=== PATIENT | female | born 1935 | race Caucasian/White ===

== ENCOUNTER 2016-12-27 05:48 | Emergency (ER) | payer OTHER ==
[~2016-12-27] VITALS: Ht 165.1 cm; Wt 72.6 kg
[2016-12-27] MEDS ORDERED: ASPIRIN 325 MG TABLET ONE (05:57)
[2016-12-27] MEDS ORDERED: ASPIRIN 325 MG TABLET PO ONE (06:00)
--- NOTE | 2016-12-27 06:03 | NUR ---
PT A/OX4 BREATHING EFFORTLESSLY ON ROOM AIR, PT STATES SHE WOKE UP WITH ALOT OF PRESSURE IN HER CHEST, IV PLACED, PT ON MONITOR, IN MD [place] AT BEDSIDE, EKG DONE, LABS DRAWN, WILL CONTINUE TO MONITOR.
[2016-12-27 06:14] LABS: BASOPHILS # (AUTO) 0.1 /CMM (0.0-0.2); BASOPHILS % (AUTO) 0.7 % (0.0-2.0); EOSINOPHILS # (AUTO) 0.3 /CMM (0.0-0.7); EOSINOPHILS % (AUTO) 4.1 % (0.0-6.0); HEMATOCRIT 42 % (33-45); HEMOGLOBIN 13.7 g/dL (11.5-14.8); LYMPHOCYTES # (AUTO) 2.6 /CMM (0.8-4.8); LYMPHOCYTES % (AUTO) 36.6 % (20.0-44.0); MEAN CORPUSCULAR HEMOGLOBIN 28 PG (26.0-33.0); MEAN CORPUSCULAR HGB CONC 33 g/dl (31.0-36.0); MEAN CORPUSCULAR VOLUME 84 fL (82-100); MONOCYTES # (AUTO) 0.5 /CMM (0.1-1.30); MONOCYTES % (AUTO) 6.3 % (2.0-12.0); NEUTROPHILS # (AUTO) 3.7 /CMM (1.8-8.9); NEUTROPHILS % (AUTO) 52.3 % (43.0-81.0); PLATELET COUNT (AUTO) 152 /CMM (150-450); RDW COEFFICIENT OF VARIATION 13.8 (11.5-15.0); RED BLOOD CELL COUNT(AUTO) 4.92 MIL/uL (4.0-5.2); WHITE BLOOD COUNT (AUTO) 7.2 K/uL (4.3-11.0)
[2016-12-27 06:24] LABS: CALCIUM, SERUM 9.3 mg/dL (8.5-10.1); CARBON DIOXIDE 31 mmol/L (21-32); CHLORIDE 106 mmol/L (98-107); CREATININE 0.9 mg/dL (0.6-1.3); GLUCOSE 99 mg/dL (74-106); POTASSIUM 4.2 mmol/L (3.5-5.1); SODIUM SERUM 140 mmol/L (136-145); UREA NITROGEN, BLOOD 28 mg/dL (7-18)
[2016-12-27 06:28] LABS: INR 0.97 (0.87-1.13); PROTHROMBIN TIME 10.4 SECS (9.5-12.7)
[2016-12-27] MEDS ORDERED: NITROGLYCERIN PACKET 1 GM PACKET TD ONE (06:30)
[2016-12-27 06:32] LABS: TROPONIN I < 0.017 ng/mL (0.00-0.056)
[2016-12-27 06:41] LABS: ALBUMIN 3.6 g/dL (3.4-5.0); BILIRUBIN,DIRECT 0.1 mg/dL (0.0-0.2); BILIRUBIN,TOTAL 0.3 mg/dL (0.2-1.0); TOTAL PROTEIN, SERUM 7.5 g/dL (6.4-8.2)
[2016-12-27] MEDS ORDERED: NITROGLYCERIN PACKET 1 GM PACKET ONE (06:51)
[2016-12-27 07:37] VITALS: BP 140/74
--- NOTE | 2016-12-27 07:39 | NUR ---
[facility], , DR. ROSALES, TRANSPORT ETA 8:35, HUGO:
--- NOTE | 2016-12-27 07:46 | NUR ---
REPORT GIVEN TO MOODY HOLM CHARGE NURSE.
--- NOTE | 2016-12-27 08:12 | NUR ---
PT WAS PICKED UP BY [facility] TO BE TRANSPORTED TO [place]. VSS
== END 2016-12-27 08:13 | disposition short-term general hospital (02) ==
LOC: ER 05:49
DX: R07.89 Other chest pain (principal); I10 Essential (primary) hypertension; Z90.10 Acquired absence of unspecified breast and nipple; Z88.8 Allergy status to other drugs, medicaments and biological substances
CPT/HCPCS: 36415; 71010; 80048; 80076; 84484; 85025; 85730; 93005; 99285; A4606; Z7610

== ENCOUNTER 2017-10-16 04:32 | Emergency (ER) | payer OTHER ==
[~2017-10-16] VITALS: Ht 167.6 cm; Wt 74.8 kg
--- NOTE | 2017-10-16 04:47 | NUR ---
PT BIBRA FROM HOME PT STATES "WOKE UP AND CANT BREATHE; FEEL NUMB" LUNGS CLEAR; DENIES CP. PT AOX3 RR EVEN AND UNLABORED. NO SOB NOTED. NAD NOTED. NO NVD AT THIS TIME. PT GOWNED AND PLACED ON MONITOR. DR BECK AT BEDSIDE FOR EVAL. PT WITH RCW PACEMAKER.
[2017-10-16] MEDS ORDERED: LORAZEPAM INJ 2 MG/ML VIAL IV ONE (05:00)
[2017-10-16] MEDS ORDERED: LORAZEPAM INJ 2 MG/ML VIAL ONE (05:04)
--- NOTE | 2017-10-16 05:08 | NUR ---
RADIOLOGY AT BEDSIDE FOR CXR
[2017-10-16 05:15] LABS: BASOPHILS # (AUTO) 0.1 /CMM (0.0-0.2); BASOPHILS % (AUTO) 0.9 % (0.0-2.0); EOSINOPHILS # (AUTO) 0.2 /CMM (0.0-0.7); EOSINOPHILS % (AUTO) 2.9 % (0.0-6.0); HEMATOCRIT 39 % (33-45); HEMOGLOBIN 12.8 g/dL (11.5-14.8); LYMPHOCYTES # (AUTO) 2.4 /CMM (0.8-4.8); LYMPHOCYTES % (AUTO) 28.9 % (20.0-44.0); MEAN CORPUSCULAR HEMOGLOBIN 28 PG (26.0-33.0); MEAN CORPUSCULAR HGB CONC 33 g/dl (31.0-36.0); MEAN CORPUSCULAR VOLUME 86 fL (82-100); MONOCYTES # (AUTO) 0.5 /CMM (0.1-1.30); NEUTROPHILS # (AUTO) 5.1 /CMM (1.8-8.9); NEUTROPHILS % (AUTO) 61.3 % (43.0-81.0); PLATELET COUNT (AUTO) 178 /CMM (150-450); RDW COEFFICIENT OF VARIATION 14.6 (11.5-15.0); RED BLOOD CELL COUNT(AUTO) 4.51 MIL/uL (4.0-5.2); WHITE BLOOD COUNT (AUTO) 8.3 K/uL (4.3-11.0)
[2017-10-16 05:20] LABS: CALCIUM, SERUM 9.8 mg/dL (8.5-10.1); CARBON DIOXIDE 28 mmol/L (21-32); CHLORIDE 106 mmol/L (98-107); CREATININE 0.9 mg/dL (0.6-1.3); GLUCOSE 108 mg/dL (74-106); POTASSIUM 3.6 mmol/L (3.5-5.1); SODIUM SERUM 141 mmol/L (136-145); UREA NITROGEN, BLOOD 20 mg/dL (7-18)
--- NOTE | 2017-10-16 05:27 | NUR ---
PT APPEARS RELAXED AND COMFORTABLE. SLEEPING. EASILY AROUSED.
[2017-10-16 05:28] LABS: TROPONIN I < 0.017 ng/mL (0.00-0.056)
--- NOTE | 2017-10-16 05:35 | NUR ---
INITIAL [facility] CALL
--- NOTE | 2017-10-16 05:42 | NUR ---
DR. NEVILLE (JEMISON ) SPEAKING TO DR. BECK REGARDING POC.
--- NOTE | 2017-10-16 07:27 | NUR ---
REPORT GIVEN TO THIAGO VILLALBA FOR MAURI
--- NOTE | 2017-10-16 09:04 | NUR ---
PT. GAVE FAMILY PHONE NUMBER FOR RIDE BACK HOME. LUCINDA (BROTHER) [phone] Addendum: 10/16/17 at 0909 by JOSS CORRECTION OF PHONE NUMBER LUCINDA [phone]
--- NOTE | 2017-10-16 09:18 | NUR ---
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
[2017-10-16 09:45] VITALS: BP 122/76
--- NOTE | 2017-10-16 09:45 | NUR ---
IV removed. Catheter intact and site benign. Pressure and 4x4 applied to site. No bleeding noted. Patient discharged to home in stable condition. Written and verbal after care instructions given. Patient verbalizes understanding of instruction.
== END 2017-10-16 09:45 | disposition home or self-care (01) ==
LOC: ER 04:32
DX: F41.9 Anxiety disorder, unspecified (principal); I10 Essential (primary) hypertension; I48.91 Unspecified atrial fibrillation; Z95.0 Presence of cardiac pacemaker; Z85.3 Personal history of malignant neoplasm of breast; Z88.8 Allergy status to other drugs, medicaments and biological substances
CPT/HCPCS: 36415; 71045-TC; 80048-TC; 84484-TC; 85025-TC; 85730-TC; A4606; J2060; Z7610

== ENCOUNTER 2017-10-28 03:42 | Emergency (ER) | payer OTHER ==
[~2017-10-28] VITALS: Ht 165.1 cm; Wt 73.9 kg
--- NOTE | 2017-10-28 03:45 | NUR ---
PT BIB [facility] WITH A C/O SOB, COUGH WITH CONGESTION AND RHONCHI NOTED BILATERALLY. 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 PT WENT TO BED #2 AND WAS TRIAGED. PT IS ON THE MONITOR AND CONTINUOUS PULSE OX. WILL CONTINUE TO MONITOR THE PT.
--- NOTE | 2017-10-28 04:30 | NUR ---
CXR DONE AT THE BEDSIDE.
[2017-10-28 04:41] LABS: BASOPHILS % (AUTO) 0.3 % (0.0-2.0); EOSINOPHILS # (AUTO) 0.2 /CMM (0.0-0.7); HEMATOCRIT 36 % (33-45); HEMOGLOBIN 11.9 g/dL (11.5-14.8); LYMPHOCYTES # (AUTO) 1.5 /CMM (0.8-4.8); LYMPHOCYTES % (AUTO) 16.4 % (20.0-44.0); MEAN CORPUSCULAR HEMOGLOBIN 28 PG (26.0-33.0); MEAN CORPUSCULAR HGB CONC 34 g/dl (31.0-36.0); MEAN CORPUSCULAR VOLUME 85 fL (82-100); MONOCYTES # (AUTO) 0.6 /CMM (0.1-1.30); MONOCYTES % (AUTO) 6.2 % (2.0-12.0); NEUTROPHILS # (AUTO) 6.8 /CMM (1.8-8.9); NEUTROPHILS % (AUTO) 75.1 % (43.0-81.0); PLATELET COUNT (AUTO) 234 /CMM (150-450); RED BLOOD CELL COUNT(AUTO) 4.19 MIL/uL (4.0-5.2); WHITE BLOOD COUNT (AUTO) 9.1 K/uL (4.3-11.0)
[2017-10-28 04:49] LABS: CALCIUM, SERUM 9.4 mg/dL (8.5-10.1); CARBON DIOXIDE 30 mmol/L (21-32); CHLORIDE 98 mmol/L (98-107); CREATININE 0.9 mg/dL (0.6-1.3); GLUCOSE 105 mg/dL (74-106); POTASSIUM 3.8 mmol/L (3.5-5.1); SODIUM SERUM 136 mmol/L (136-145); UREA NITROGEN, BLOOD 20 mg/dL (7-18)
[2017-10-28] MEDS ORDERED: methylPREDNISolone SOD SUCC 125 MG/2ML VIAL ONE (04:50)
[2017-10-28 04:57] LABS: TROPONIN I < 0.017 ng/mL (0.00-0.056)
[2017-10-28] MEDS ORDERED: methylPREDNISolone SOD SUCC 125 MG/2ML VIAL IV ONE (05:00)
--- NOTE | 2017-10-28 05:00 | NUR ---
PT'S O2 NC WAS TURNED OFF AND PT DESATURATED TO 87%. PT PLACED BACK ON 2L.
[2017-10-28 05:02] LABS: B-TYPE NATRIURETIC PEPTIDE 5111 PG/ML (0-125)
--- NOTE | 2017-10-28 05:06 | NUR ---
CALLED MAURI BOATENG
[2017-10-28] MEDS ORDERED: OSELTAMIVIR PHOSPHATE 75 MG CAPSULE ONE (05:28)
[2017-10-28] MEDS ORDERED: OSELTAMIVIR PHOSPHATE 75 MG CAPSULE PO ONE (05:30)
[2017-10-28 05:56] VITALS: BP 130/87
--- NOTE | 2017-10-28 06:17 | NUR ---
[facility] TELE ROOM 4061; [phone]; DR. COELHO, Kimi ACCEPTING; ETA [phone]
--- NOTE | 2017-10-28 06:47 | NUR ---
CALLING REPORT TO [facility]. PT IS GOING TO TELE ROOM 4061;Kimi ANDREW ACCEPTING; ETA [phone].
--- NOTE | 2017-10-28 06:59 | NUR ---
REPORT GIVEN TO AMBULANCE EMT. PT TRANSFERED BY AMBULANCE TO [facility]. VSS.
== END 2017-10-28 07:01 ==
LOC: ER 03:43
DX: J11.1 Influenza due to unidentified influenza virus with other respiratory manifestations (principal); I50.9 Heart failure, unspecified; I11.0 Hypertensive heart disease with heart failure; I48.91 Unspecified atrial fibrillation; Z95.0 Presence of cardiac pacemaker; F41.9 Anxiety disorder, unspecified; Z85.3 Personal history of malignant neoplasm of breast; Z88.8 Allergy status to other drugs, medicaments and biological substances; Z79.01 Long term (current) use of anticoagulants
CPT/HCPCS: 36415; 71045; 80048; 83605; 83880; 84484; 85025; 87040 ×2; 87804; 93005; 96374; 99285; A4606; J2930; 87400; Z7610

== ENCOUNTER 2017-11-19 08:28 | Emergency (ER) | payer OTHER ==
[~2017-11-19] VITALS: Ht 162.6 cm; Wt 71.2 kg
--- NOTE | 2017-11-19 08:35 | NUR ---
PT BIB [facility] C/O SOB THIS MORNING WITH RECENT ADMISSION TO [place] [place] FOR "LUNG INFECTION" AND REPORTS TAKING TAMIFLU IN OCTOBER. NOTED WITH MILD SOB AND HYPOXIC 90% ON ROOM AIR. PLACED ON 2L VIA NC WITH INCREASE TO 100%. PT DENIES PAIN OR CP, BUT IS NOTED WITH AFIB UNCONTROLLED ON MONITOR. CAP REFILL WNL. SKIN WARM DRY. A/OX4. REPORTS SHE IS NOT ON ANTICOAGULANTS D/T HX OF BLEEDING. IN ER BED 02. MD AT BEDSIDE FOR EVAL. EMT NOTIFIED FOR EKG.
[2017-11-19] MEDS ORDERED: ALBUTEROL FS 2.5 MG/3 ML VIAL.NEB ONE (08:46)
[2017-11-19] MEDS ORDERED: IPRATROPIUM NEB FS 0.5 MG/2.5 ML AMPUL.NEB ONE (08:46)
[2017-11-19 08:52] LABS: BASOPHILS # (AUTO) 0.1 /CMM (0.0-0.2); BASOPHILS % (AUTO) 0.7 % (0.0-2.0); EOSINOPHILS # (AUTO) 0.2 /CMM (0.0-0.7); EOSINOPHILS % (AUTO) 1.7 % (0.0-6.0); HEMATOCRIT 38 % (33-45); HEMOGLOBIN 12.5 g/dL (11.5-14.8); LYMPHOCYTES # (AUTO) 1.3 /CMM (0.8-4.8); LYMPHOCYTES % (AUTO) 14.3 % (20.0-44.0); MEAN CORPUSCULAR HEMOGLOBIN 28 PG (26.0-33.0); MEAN CORPUSCULAR HGB CONC 33 g/dl (31.0-36.0); MEAN CORPUSCULAR VOLUME 84 fL (82-100); MONOCYTES # (AUTO) 0.5 /CMM (0.1-1.30); MONOCYTES % (AUTO) 6.1 % (2.0-12.0); NEUTROPHILS # (AUTO) 6.7 /CMM (1.8-8.9); NEUTROPHILS % (AUTO) 77.2 % (43.0-81.0); PLATELET COUNT (AUTO) 155 /CMM (150-450); RDW COEFFICIENT OF VARIATION 16.8 (11.5-15.0); RED BLOOD CELL COUNT(AUTO) 4.47 MIL/uL (4.0-5.2); WHITE BLOOD COUNT (AUTO) 8.7 K/uL (4.3-11.0)
[2017-11-19] MEDS ORDERED: IPRATROPIUM NEB FS 0.5 MG/2.5 ML AMPUL.NEB NEB ONE (09:00)
[2017-11-19] MEDS ORDERED: ALBUTEROL FS 2.5 MG/3 ML VIAL.NEB NEB ONE (09:00)
[2017-11-19 09:17] LABS: INR 0.99 (0.87-1.13)
[2017-11-19 09:20] LABS: B-TYPE NATRIURETIC PEPTIDE 4351 PG/ML (0-125); CALCIUM, SERUM 10.1 mg/dL (8.5-10.1); CARBON DIOXIDE 25 mmol/L (21-32); CHLORIDE 110 mmol/L (98-107); GLUCOSE 130 mg/dL (74-106); POTASSIUM 4.5 mmol/L (3.5-5.1); SODIUM SERUM 144 mmol/L (136-145); UREA NITROGEN, BLOOD 19 mg/dL (7-18)
[2017-11-19] MEDS ORDERED: DILTIAZEM HCL 25 MG IV ONE (09:46)
[2017-11-19] MEDS ORDERED: FUROSEMIDE 20 MG/2 ML VIAL IV ONE (10:00)
[2017-11-19] MEDS ORDERED: DILTIAZEM HCL 50 MG IV IV ONE (10:00)
[2017-11-19 10:01] LABS: TROPONIN I < 0.017 ng/mL (0.00-0.056)
[2017-11-19] MEDS ORDERED: FUROSEMIDE 20 MG/2 ML VIAL ONE (10:08)
--- NOTE | 2017-11-19 10:13 | NUR ---
[facility] CALLED, SPOKE WITH LEIA DAS
[2017-11-19 11:21] VITALS: BP 105/74
--- NOTE | 2017-11-19 11:50 | NUR ---
TRANSFER INFO:[facility] ROOM:[id number] DR. RHIANNON BARBER [id number] CALL FOR REPORT- [phone] [employer] CONSULTANT NAME- NASIM RN
--- NOTE | 2017-11-19 12:24 | NUR ---
REPORT GIVEN AT LAISHA DAS AT [place]. PT AWAITING TRANSPORT AMBULALANCE.
--- NOTE | 2017-11-19 13:12 | NUR ---
TRANSPORTED TO [facility]. STABLE CONDITION.
== END 2017-11-19 13:23 | disposition short-term general hospital (02) ==
LOC: ER 08:30
DX: I48.91 Unspecified atrial fibrillation (principal); I11.0 Hypertensive heart disease with heart failure; I50.9 Heart failure, unspecified; R06.02 Shortness of breath; E78.5 Hyperlipidemia, unspecified; F41.9 Anxiety disorder, unspecified; J44.9 Chronic obstructive pulmonary disease, unspecified; Z85.3 Personal history of malignant neoplasm of breast; Z95.0 Presence of cardiac pacemaker; Z88.8 Allergy status to other drugs, medicaments and biological substances; Z79.01 Long term (current) use of anticoagulants
CPT/HCPCS: 36415; 71045; 80048; 83880; 84484; 85025; 85730; 93005; 94640 ×2; 96374; 96375; 99291; A4606; J1940; J3490; Z7610

== ENCOUNTER 2023-10-20 22:51 | Emergency (ER) | payer OTHER, MEDICAID ==
[~2023-10-20] VITALS: Ht 157.5 cm; Wt 62.6 kg
[2023-10-20 23:39] LABS: BASOPHILS # (AUTO) 0.1 K/uL (0.0-0.2); BASOPHILS % (AUTO) 1.2 % (0.0-2.0); EOSINOPHILS # (AUTO) 0.3 K/uL (0.0-0.7); EOSINOPHILS % (AUTO) 3.4 % (0.0-6.0); HEMATOCRIT 41 % (33-45); HEMOGLOBIN 13.7 g/dL (11.5-14.8); LYMPHOCYTES # (AUTO) 1.1 K/uL (0.8-4.8); LYMPHOCYTES % (AUTO) 13.8 % (20.0-44.0); MEAN CORPUSCULAR HEMOGLOBIN 28 PG (26.0-33.0); MEAN CORPUSCULAR HGB CONC 33 g/dl (31.0-36.0); MEAN CORPUSCULAR VOLUME 85 fL (82-100); MONOCYTES # (AUTO) 0.6 K/uL (0.1-1.30); MONOCYTES % (AUTO) 7.1 % (2.0-12.0); NEUTROPHILS # (AUTO) 5.8 K/uL (1.8-8.9); NEUTROPHILS % (AUTO) 74.5 % (43.0-81.0); PLATELET COUNT (AUTO) 146 K/uL (150-450); RED BLOOD CELL COUNT(AUTO) 4.85 MIL/uL (4.0-5.2); RED CELL DISTRIBUTION WIDTH 15.6 % (11.5-15.0); WHITE BLOOD COUNT (AUTO) 7.8 K/uL (4.3-11.0)
[2023-10-20 23:40] LABS: CALCIUM, SERUM 9.5 mg/dL (8.5-10.1); CARBON DIOXIDE 32 mmol/L (21-32); CHLORIDE 101 mmol/L (98-107); CREATININE 0.9 mg/dL (0.6-1.3); GLUCOSE 148 mg/dL (74-106); POTASSIUM 3.7 mmol/L (3.5-5.1); SODIUM SERUM 139 mmol/L (136-145); UREA NITROGEN, BLOOD 11 mg/dL (7-18)
[2023-10-20 23:45] LABS: INR 1.08 (0.91-1.10); PARTIAL THROMBOPLASTIN TIME 29.7 SEC (24.3-34.3); PROTHROMBIN TIME 11.4 SECS (9.2-11.1)
[2023-10-20 23:53] LABS: LACTIC ACID 1.2 mmol/L (0.4-2.0)
[2023-10-21] LABS: ALANINE AMINOTRANSFERASE 16 U/L (12-78); ALBUMIN 3.5 g/dL (3.4-5.0); ALKALINE PHOSPHATASE 79 U/L (46-116); ASPARTATE AMINOTRANSFERASE 23 U/L (15-37); BILIRUBIN,DIRECT 0.1 mg/dL (0.0-0.2); BILIRUBIN,TOTAL 0.4 mg/dL (0.2-1.0); NT-PRO BNP 1341 pg/mL (0-125); TOTAL PROTEIN, SERUM 8.5 g/dL (6.4-8.2)
[2023-10-21] MEDS ORDERED: FUROSEMIDE 40 MG TABLET PO ONE (01:00)
[2023-10-21] MEDS ORDERED: FUROSEMIDE 40 MG TABLET ONE (01:09)
[2023-10-21] MEDS ORDERED: AZITHROMYCIN 500 MG VIAL ONE (01:58)
[2023-10-21] MEDS ORDERED: CEFTRIAXONE 1GM BAG (ER ONLY) 50 ML IV ONE (01:58)
[2023-10-21] MEDS ORDERED: AZITHROMYCIN 500 MG in IV D5W 250 ML IV ONE (02:00)
[2023-10-21] MEDS ORDERED: CEFTRIAXONE 1GM BAG (ER ONLY) 1 GM/50 ML PIGGYBACK IV ONE (02:00)
[2023-10-21 05:00] VITALS: BP 106/93; TEMP 98.3; O2SAT 98
== END 2023-10-21 05:47 | disposition short-term general hospital (02) ==
LOC: ER 22:57
DX: I11.0 Hypertensive heart disease with heart failure (principal); I50.9 Heart failure, unspecified; J18.9 Pneumonia, unspecified organism; I44.7 Left bundle-branch block, unspecified; R09.02 Hypoxemia; I48.91 Unspecified atrial fibrillation; E78.5 Hyperlipidemia, unspecified; J44.9 Chronic obstructive pulmonary disease, unspecified; F41.9 Anxiety disorder, unspecified; Z88.8 Allergy status to other drugs, medicaments and biological substances; Z20.822 Contact with and (suspected) exposure to COVID-19
CPT/HCPCS: 99291; 71045; 87426; 93005; 87804 ×2; 85025; 80048; 87040 ×2; 83605; 80076; 36415 ×2; 84484 ×2; 85730; 83880; 96365; 96367; J0456; A4223; J0696; J7060